=== PATIENT | female | born 1945 | race Two or more races ===

== ENCOUNTER 2017-08-22 18:31 | Emergency (ER) | payer MEDICARE, OTHER ==
[~2017-08-22] VITALS: Ht 154.9 cm; Wt 68.0 kg
--- NOTE | 2017-08-22 18:35 | NUR ---
PRESENTS TO ER C/O LEFT WRIST/ARM PAIN AND RT KNEE PAIN S/P SLIP AND FALL. PATIENT IS A/OX 4. BREATHING EVEN AND UNLABORED. NO SOB, NAD, VITALS STABLE. SAFETY AND COMFORT MEASURES IN PLACE. AWAITING MD ORDERS.
--- NOTE | 2017-08-22 18:52 | NUR ---
AT BEDSIDE FOR EVAL.
--- NOTE | 2017-08-22 19:10 | NUR ---
FIELD MARKETING LEAD AT BEDSIDE.
[2017-08-22] MEDS ORDERED: TRAMADOL HCL 50 MG TABLET ONE (20:47)
[2017-08-22] MEDS ORDERED: TRAMADOL HCL 50 MG TABLET PO ONE (21:00)
[2017-08-22 21:02] VITALS: BP 124/88
== END 2017-08-22 21:02 | disposition home or self-care (01) ==
LOC: ER 18:34
DX: S52.502A Unspecified fracture of the lower end of left radius, initial encounter for closed fracture (principal); S52.602A Unspecified fracture of lower end of left ulna, initial encounter for closed fracture; F32.9 Major depressive disorder, single episode, unspecified; M25.561 Pain in right knee; I10 Essential (primary) hypertension; Z90.10 Acquired absence of unspecified breast and nipple; Z86.73 Personal history of transient ischemic attack (TIA), and cerebral infarction without residual deficits; W01.0XXA Fall on same level from slipping, tripping and stumbling without subsequent striking against object, initial encounter; Y93.89 Activity, other specified; Y92.89 Other specified places as the place of occurrence of the external cause; Y99.8 Other external cause status
CPT/HCPCS: 29125; 73110; 73564; 99284; A4606; Z7610

== ENCOUNTER 2019-05-15 15:14 | Emergency (ER) | payer MEDICARE, OTHER ==
[~2019-05-15] VITALS: Ht 154.9 cm; Wt 68.0 kg
--- NOTE | 2019-05-15 15:36 | NUR ---
PT CAME INTO THE ED C/O LOWER BACK PAIN R/T LLE. PAIN HAS GOTTEN WORST FOR THE PAST 2 DAYS. PT AAOX4, VSS, BREATHING EVEN AND UNLABORED ON ROOM AIR W/ NAD NOTED. AWAITING FOR MD DURAN.
[2019-05-15] MEDS ORDERED: KETOROLAC TROMETHAMINE INJ 30 MG/ML VIAL ONE (15:49)
[2019-05-15] MEDS ORDERED: KETOROLAC TROMETHAMINE INJ 60 MG/2 ML VIAL IM ONE (16:00)
--- NOTE | 2019-05-15 16:53 | NUR ---
ULTRAOSUND IN PROGRESS AT BEDSIDE
[2019-05-15 17:06] VITALS: BP 117/86
--- NOTE | 2019-05-15 17:06 | NUR ---
Patient discharged to home in stable condition. Written and verbal after care instructions given. Patient verbalizes understanding of instruction.
== END 2019-05-15 17:08 | disposition home or self-care (01) ==
LOC: ER 15:15
DX: M54.42 Lumbago with sciatica, left side (principal); I10 Essential (primary) hypertension; F32.9 Major depressive disorder, single episode, unspecified; Z98.890 Other specified postprocedural states; Z85.3 Personal history of malignant neoplasm of breast
CPT/HCPCS: 93971; 96372; 99284; J1885

== ENCOUNTER 2023-01-15 17:18 | Emergency (ER) | payer MEDICARE, OTHER ==
[~2023-01-15] VITALS: Ht 162.6 cm; Wt 68.0 kg
[2023-01-15 18:54] LABS: EOSINOPHILS # (AUTO) 0.1 K/uL (0.0-0.7); EOSINOPHILS % (AUTO) 0.5 % (0.0-6.0); HEMATOCRIT 27 % (33-45); HEMOGLOBIN 8.8 g/dL (11.5-14.8); LYMPHOCYTES # (AUTO) 0.7 K/uL (0.8-4.8); LYMPHOCYTES % (AUTO) 5.9 % (20.0-44.0); MEAN CORPUSCULAR HEMOGLOBIN 27 PG (26.0-33.0); MEAN CORPUSCULAR HGB CONC 32 g/dl (31.0-36.0); MEAN CORPUSCULAR VOLUME 85 fL (82-100); MONOCYTES # (AUTO) 1.3 K/uL (0.1-1.30); MONOCYTES % (AUTO) 10.2 % (2.0-12.0); NEUTROPHILS # (AUTO) 10.3 K/uL (1.8-8.9); NEUTROPHILS % (AUTO) 83.4 % (43.0-81.0); PLATELET COUNT (AUTO) 624 K/uL (150-450); RED BLOOD CELL COUNT(AUTO) 3.21 MIL/uL (4.0-5.2); RED CELL DISTRIBUTION WIDTH 19.4 % (11.5-15.0); WHITE BLOOD COUNT (AUTO) 12.3 K/uL (4.3-11.0)
[2023-01-15] MEDS ORDERED: IV NS 0.9% 1,000 ML IV ONE (19:00)
[2023-01-15 19:04] LABS: CALCIUM, SERUM 8.1 mg/dL (8.5-10.1); CARBON DIOXIDE 30 mmol/L (21-32); CHLORIDE 96 mmol/L (98-107); CREATININE 0.5 mg/dL (0.6-1.3); GLUCOSE 117 mg/dL (74-106); SODIUM SERUM 134 mmol/L (136-145); UREA NITROGEN, BLOOD 10 mg/dL (7-18)
[2023-01-15 19:10] LABS: ALANINE AMINOTRANSFERASE 16 U/L (12-78); ALBUMIN 1.7 g/dL (3.4-5.0); ALKALINE PHOSPHATASE 167 U/L (46-116); ASPARTATE AMINOTRANSFERASE 12 U/L (15-37); BILIRUBIN,DIRECT 0.2 mg/dL (0.0-0.2); BILIRUBIN,TOTAL 0.5 mg/dL (0.2-1.0); LIPASE < 10 U/L (73-393); POTASSIUM 2.8 mmol/L (3.5-5.1); TOTAL PROTEIN, SERUM 5.4 g/dL (6.4-8.2)
[2023-01-15] MEDS ORDERED: POTASSIUM CHLORIDE 20 MEQ TAB.PRT.SR PO ONE ×2 (19:23→19:30)
[2023-01-15] MEDS ORDERED: IOHEXOL-350 100 ML VIAL IV ONE (19:44)
[2023-01-15] MEDS ORDERED: IV NS 0.9% 250 ML IV ONE (19:44)
[2023-01-15 20:15] LABS: APPEARANCE,URINE SLIGHTLY CLOUDY (CLEAR); BILIRUBIN,URINE 2+ (NEGATIVE); BLOOD, URINE TRACE-INTA Ery/uL (NEGATIVE); COLOR,URINE YELLOW (YELLOW); KETONES,URINE 3+ mg/dL (NEGATIVE); LEUKOCYTE ESTERASE ,URINE TRACE (NEGATIVE); NITRITE, URINE NEGATIVE (NEGATIVE); PROTEIN,URINE 1+ mg/dl (NEGATIVE); UGLUCOSE NEGATIVE (NEGATIVE)
[2023-01-15 20:22] LABS: ADD URINE CULTURE NO; BACTERIA,URINE 1+ /HPF (None Seen)
[2023-01-15 20:23] LABS: MUCUS,URINE Many /LPF (None Seen)
[2023-01-16 07:47] LABS: ALANINE AMINOTRANSFERASE 17 U/L (12-78); ALBUMIN 1.8 g/dL (3.4-5.0); ALKALINE PHOSPHATASE 178 U/L (46-116); ASPARTATE AMINOTRANSFERASE 20 U/L (15-37); BILIRUBIN,TOTAL 0.5 mg/dL (0.2-1.0); CALCIUM, SERUM 8.3 mg/dL (8.5-10.1); CARBON DIOXIDE 22 mmol/L (21-32); CHLORIDE 98 mmol/L (98-107); CREATININE 0.4 mg/dL (0.6-1.3); GLUCOSE 112 mg/dL (74-106); POTASSIUM 3.2 mmol/L (3.5-5.1); SODIUM SERUM 135 mmol/L (136-145); TOTAL PROTEIN, SERUM 6.1 g/dL (6.4-8.2); UREA NITROGEN, BLOOD 6 mg/dL (7-18)
[2023-01-16 08:15] LABS: BASOPHILS % (AUTO) 0.2 % (0.0-2.0); EOSINOPHILS % (AUTO) 0.4 % (0.0-6.0); HEMATOCRIT 32 % (33-45); HEMOGLOBIN 10.2 g/dL (11.5-14.8); LYMPHOCYTES # (AUTO) 1.1 K/uL (0.8-4.8); LYMPHOCYTES % (AUTO) 9.1 % (20.0-44.0); MEAN CORPUSCULAR HEMOGLOBIN 27 PG (26.0-33.0); MEAN CORPUSCULAR HGB CONC 32 g/dl (31.0-36.0); MEAN CORPUSCULAR VOLUME 85 fL (82-100); MONOCYTES # (AUTO) 1.4 K/uL (0.1-1.30); MONOCYTES % (AUTO) 12.2 % (2.0-12.0); NEUTROPHILS # (AUTO) 9.3 K/uL (1.8-8.9); NEUTROPHILS % (AUTO) 78.1 % (43.0-81.0); PLATELET COUNT (AUTO) 697 K/uL (150-450); RED BLOOD CELL COUNT(AUTO) 3.73 MIL/uL (4.0-5.2); RED CELL DISTRIBUTION WIDTH 19.5 % (11.5-15.0); WHITE BLOOD COUNT (AUTO) 11.9 K/uL (4.3-11.0)
[2023-01-16] MEDS ORDERED: AMOX50SU15 PO (08:45)
[2023-01-16 08:51] VITALS: BP 122/84; TEMP 98.4; O2SAT 98
== END 2023-01-16 08:51 | disposition home or self-care (01) ==
LOC: ER 17:53
DX: E87.6 Hypokalemia (principal); K91.89 Other postprocedural complications and disorders of digestive system; R10.33 Periumbilical pain; I10 Essential (primary) hypertension; F32.A Depression, unspecified; Z20.822 Contact with and (suspected) exposure to COVID-19; Z98.890 Other specified postprocedural states; Y83.9 Surgical procedure, unspecified as the cause of abnormal reaction of the patient, or of later complication, without mention of misadventure at the time of the procedure
CPT/HCPCS: 99285; 74177; 96360; 87426; 85025 ×2; 80048; 83690; 80076; 81001; 36415 ×2; 86850; 80053; J7030; J7050; Q9967; C9803

== ENCOUNTER 2023-01-19 13:53 | Inpatient (IN) | payer MEDICARE, OTHER ==
[~2023-01-19] VITALS: Ht 157.5 cm; Wt 57.6 kg
[~2023-01-19 13:53] MED LIST: AMOX50SU15 PO; ZOSYN IVPB 3.375 G in IV D5W 50ml IV SCH
[2023-01-19] MEDS ORDERED: IV NS 0.9% 1,000 ML BAG IV ONE (14:30)
[2023-01-19 14:40] LABS: BASOPHILS % (AUTO) 0.3 % (0.0-2.0); EOSINOPHILS # (AUTO) 0.2 K/uL (0.0-0.7); EOSINOPHILS % (AUTO) 1.4 % (0.0-6.0); HEMATOCRIT 29 % (33-45); HEMOGLOBIN 9.4 g/dL (11.5-14.8); LYMPHOCYTES # (AUTO) 0.8 K/uL (0.8-4.8); LYMPHOCYTES % (AUTO) 7.1 % (20.0-44.0); MEAN CORPUSCULAR HEMOGLOBIN 28 PG (26.0-33.0); MEAN CORPUSCULAR HGB CONC 33 g/dl (31.0-36.0); MEAN CORPUSCULAR VOLUME 84 fL (82-100); MONOCYTES # (AUTO) 0.8 K/uL (0.1-1.30); NEUTROPHILS # (AUTO) 9.6 K/uL (1.8-8.9); NEUTROPHILS % (AUTO) 84.2 % (43.0-81.0); PLATELET COUNT (AUTO) 770 K/uL (150-450); RED BLOOD CELL COUNT(AUTO) 3.42 MIL/uL (4.0-5.2); RED CELL DISTRIBUTION WIDTH 19.5 % (11.5-15.0); WHITE BLOOD COUNT (AUTO) 11.5 K/uL (4.3-11.0)
[2023-01-19 14:53] LABS: ALANINE AMINOTRANSFERASE 19 U/L (12-78); ALBUMIN 1.7 g/dL (3.4-5.0); ALKALINE PHOSPHATASE 136 U/L (46-116); ASPARTATE AMINOTRANSFERASE 23 U/L (15-37); BILIRUBIN,DIRECT 0.1 mg/dL (0.0-0.2); BILIRUBIN,TOTAL 0.3 mg/dL (0.2-1.0); CALCIUM, SERUM 8.1 mg/dL (8.5-10.1); CARBON DIOXIDE 27 mmol/L (21-32); CHLORIDE 100 mmol/L (98-107); CREATININE 0.9 mg/dL (0.6-1.3); GLUCOSE 155 mg/dL (74-106); SODIUM SERUM 138 mmol/L (136-145); TOTAL PROTEIN, SERUM 5.5 g/dL (6.4-8.2); UREA NITROGEN, BLOOD 11 mg/dL (7-18)
[2023-01-19 14:56] LABS: LACTIC ACID 1.6 mmol/L (0.4-2.0); POTASSIUM 2.8 mmol/L (3.5-5.1)
[2023-01-19 15:30] LABS: INR 1.28 (0.91-1.10); PARTIAL THROMBOPLASTIN TIME 22.5 SEC (24.3-34.3); PROTHROMBIN TIME 13.3 SECS (9.2-11.1)
[2023-01-19] MEDS ORDERED: LATA7.5D EACHEYE (15:42)
[2023-01-19] MEDS ORDERED: QUET25TA PO (15:42)
[2023-01-19] MEDS ORDERED: BLOO-668 IN (15:42)
[2023-01-19] MEDS ORDERED: LORA-259 PO (15:42)
[2023-01-19] MEDS ORDERED: OLOP2.5D6 EACHEYE (15:42)
[2023-01-19] MEDS ORDERED: AMYL1CAP58 PO (15:42)
[2023-01-19] MEDS ORDERED: VENL150T PO (15:42)
[2023-01-19] MEDS ORDERED: BACL10TA PO (15:42)
[2023-01-19] MEDS ORDERED: RAME8TAB24 PO (15:42)
[2023-01-19] MEDS ORDERED: BRIM5DRO2 EACHEYE (15:42)
[2023-01-19] MEDS ORDERED: OFLO5DRO6 EACHEYE (15:42)
[2023-01-19] MEDS ORDERED: AMOX-430 PO (15:42)
[2023-01-19] MEDS ORDERED: METO25TA6 PO (15:42)
[2023-01-19] MEDS ORDERED: ASPI-1169 PO (15:42)
[2023-01-19] MEDS ORDERED: BACI1OIN LEFTEYE (15:42)
[2023-01-19] MEDS ORDERED: NIAC-5 PO (15:42)
[2023-01-19] MEDS ORDERED: OMEP1CAP24 PO (15:42)
[2023-01-19] MEDS ORDERED: DONE10TA44 PO (15:42)
[2023-01-19] MEDS ORDERED: NITROGLYCERIN 0.4 MG/TAB BOTTLE SL PRN (16:00)
[2023-01-19] MEDS ORDERED: POTASSIUM CHLORIDE 20 MEQ TAB.PRT.SR PO ONE ×2 (16:00→16:09)
[2023-01-19] MEDS ORDERED: ASPIRIN 325 MG TABLET PO ONE (16:00)
[2023-01-19] MEDS ORDERED: LORAZEPAM 1 MG TABLET PO PRN (16:00)
[2023-01-19] MEDS ORDERED: POTASSIUM CL. PREMIX PERIPHER. 50 ML IV SCH (16:00)
[2023-01-19] MEDS ORDERED: ONDANSETRON HCL/PF 4 MG/2 ML VIAL IVP PRN (16:00)
[2023-01-19] MEDS ORDERED: MORPHINE SULFATE INJ 2 MG/ML DISP.SYRIN IV PRN (16:00)
[2023-01-19] MEDS ORDERED: POTASSIUM CL. PREMIX PERIPHER. 50 ML ONE ×2 (16:09→16:57)
[2023-01-19 16:26] VITALS: O2SAT 97
[2023-01-19] MEDS ORDERED: ASPIRIN 81 MG TAB.CHEW PO ONE (16:30)
[2023-01-19] MEDS ORDERED: PIPERACILLIN /TAZOBACTAM 3.375 G in IV D5W 50 ML IV ONE (16:30)
[2023-01-19] MEDS ORDERED: ASPIRIN 325 MG TABLET ONE (16:53)
[2023-01-19] MEDS ORDERED: ASPIRIN 81 MG TAB.CHEW ONE (16:56)
[2023-01-19] MEDS ORDERED: PIPERACILLIN /TAZOBACTAM 4.5 G in IV D5W 50 ML IV SCH (18:00)
[2023-01-19 18:08] LABS: ANISOCYTOSIS 1+; BAND % (MANUAL) 5 % (0.0-5.0); EOSINOPHILS % (MANUAL) 1 % (0-4); LYMPHOCYTES % (MANUAL) 12 % (16-48); MONOCYTES % (MANUAL) 4 % (0-11.0); NEUTROPHILS % (MANUAL) 78 (42-76); OVALOCYTES 1+; PLATELET ESTIMATE INCREASED
[2023-01-19 20:00] VITALS: BP 102/54; TEMP 98.3; O2SAT 97
[2023-01-19 20:25] VITALS: BP 112/69; TEMP 98.1
[2023-01-19 20:59] LABS: INR 1.25 (0.91-1.10)
[2023-01-19] MEDS ORDERED: HEPARIN INFUSION/D5W 500 ML IV PRN (21:00)
[2023-01-19] MEDS ORDERED: HEPARIN SODIUM, PORCINE 5000 UNITS/1 ML VIAL IV ONE (21:00)
[2023-01-19] MEDS: BACLOFEN (10 MG) 10 MG TABLET PO SCH (21:58)
[2023-01-19] MEDS: LATANOPROST EYE DROP 0.005% 2.5 ML BOTTLE EACHEYE SCH ×2 (21:59→23:38)
[2023-01-19] MEDS: QUETIAPINE FUMARATE 25 MG TABLET PO SCH (21:59)
[2023-01-19] MEDS: DONEPEZIL 5 MG TABLET PO SCH (21:59)
[2023-01-19] MEDS ORDERED: RAMELTEON 8 MG PO SCH (22:00)
[2023-01-19] MEDS: OLOPATADINE HCL 0.1% OPHTH BOTTLE EACHEYE SCH (23:41)
[2023-01-20] MEDS: CALCIUM CARBONATE 500 MG TAB.CHEW PO PRN ×2 (00:11→23:25)
[2023-01-20] MEDS: ZOSYN IVPB 3.375 G in IV D5W 50ml IV SCH ×5 (01:26→23:58)
[2023-01-20] MEDS: LATANOPROST EYE DROP 0.005% 2.5 ML BOTTLE EACHEYE SCH ×2 (02:12→21:19)
[2023-01-20] MEDS: BLOOD SUGAR DIAGNOSTIC 1 EACH STRIP IN SCH (06:40)
[2023-01-20 06:45] LABS: BASOPHILS % (AUTO) 0.3 % (0.0-2.0); EOSINOPHILS # (AUTO) 0.3 K/uL (0.0-0.7); EOSINOPHILS % (AUTO) 3.8 % (0.0-6.0); HEMATOCRIT 27 % (33-45); HEMOGLOBIN 8.6 g/dL (11.5-14.8); LYMPHOCYTES # (AUTO) 1.3 K/uL (0.8-4.8); LYMPHOCYTES % (AUTO) 15.7 % (20.0-44.0); MEAN CORPUSCULAR HEMOGLOBIN 27 PG (26.0-33.0); MEAN CORPUSCULAR HGB CONC 32 g/dl (31.0-36.0); MEAN CORPUSCULAR VOLUME 85 fL (82-100); MONOCYTES # (AUTO) 0.8 K/uL (0.1-1.30); MONOCYTES % (AUTO) 9.9 % (2.0-12.0); NEUTROPHILS # (AUTO) 5.6 K/uL (1.8-8.9); NEUTROPHILS % (AUTO) 70.3 % (43.0-81.0); PLATELET COUNT (AUTO) 643 K/uL (150-450); RED BLOOD CELL COUNT(AUTO) 3.17 MIL/uL (4.0-5.2); RED CELL DISTRIBUTION WIDTH 19.6 % (11.5-15.0)
[2023-01-20 07:14] LABS: INR 1.22 (0.91-1.10); PARTIAL THROMBOPLASTIN TIME 37.5 SEC (24.3-34.3); PROTHROMBIN TIME 12.7 SECS (9.2-11.1)
[2023-01-20 07:30] LABS: CALCIUM, SERUM 7.9 mg/dL (8.5-10.1); CARBON DIOXIDE 26 mmol/L (21-32); CHLORIDE 103 mmol/L (98-107); CREATININE 0.5 mg/dL (0.6-1.3); GLUCOSE 105 mg/dL (74-106); MAGNESIUM 1.5 mg/dL (1.8-2.4); PHOSPHORUS 2.7 mg/dL (2.5-4.9); SODIUM SERUM 137 mmol/L (136-145); UREA NITROGEN, BLOOD 8 mg/dL (7-18)
[2023-01-20 08:00] VITALS: BP 121/72; TEMP 98.3; O2SAT 99
[2023-01-20 08:38] LABS: POTASSIUM 2.7 mmol/L (3.5-5.1)
[2023-01-20] MEDS: OFLOXACIN 0.3% OPHTH 5 ML BOTTLE EACHEYE SCH ×3 (09:00→17:54)
[2023-01-20] MEDS ORDERED: POTASSIUM CHLORIDE 20 MEQ TAB.PRT.SR PO ONE (10:00)
[2023-01-20] MEDS: Magnesium 1GM/D5W 100ML PREMIX 100 ML IV SCH ×4 (10:36→20:34)
[2023-01-20] MEDS: PANTOPRAZOLE 40 MG TABLET.DR PO SCH (10:45)
[2023-01-20] MEDS: ASPIRIN 81 MG TAB.CHEW PO SCH (10:46)
[2023-01-20] MEDS: VENLAFAXINE XR 150 MG CAP.SR.24H PO SCH (10:47)
[2023-01-20] MEDS: LIPASE/PROTEASE/AMYLASE 1 EACH CAPSULE.DR PO SCH ×4 (12:50→18:09)
[2023-01-20] MEDS: METOPROLOL TARTRATE 25 MG TABLET PO SCH ×3 (12:52→17:57)
[2023-01-20 16:00] VITALS: BP 128/80; TEMP 98.5; O2SAT 96
[2023-01-20] MEDS: IV NS 0.9% 1,000 ML IV PRN (19:36)
[2023-01-20 20:00] VITALS: BP 107/73; TEMP 98.7; O2SAT 97
[2023-01-20] MEDS: OLOPATADINE HCL 0.1% OPHTH BOTTLE EACHEYE SCH (21:13)
[2023-01-20] MEDS: DONEPEZIL 5 MG TABLET PO SCH (21:16)
[2023-01-20] MEDS: QUETIAPINE FUMARATE 25 MG TABLET PO SCH (21:17)
[2023-01-20] MEDS: BACLOFEN (10 MG) 10 MG TABLET PO SCH (21:17)
[2023-01-20] MEDS ORDERED: ATORVASTATIN 10 MG TABLET PO SCH (22:00)
[2023-01-21] VITALS: BP 103/59; TEMP 98; O2SAT 96
[2023-01-21 04:00] VITALS: BP_SYST 130; TEMP 98; O2SAT 98
[2023-01-21] MEDS: ZOSYN IVPB 3.375 G in IV D5W 50ml IV SCH (06:43)
[2023-01-21 07:00] VITALS: BP 137/75; TEMP 97.6; O2SAT 97
[2023-01-21] MEDS: BLOOD SUGAR DIAGNOSTIC 1 EACH STRIP IN SCH (07:30)
[2023-01-21] MEDS: PANTOPRAZOLE 40 MG TABLET.DR PO SCH (07:56)
[2023-01-21] MEDS: LIPASE/PROTEASE/AMYLASE 1 EACH CAPSULE.DR PO SCH ×3 (08:04→17:08)
[2023-01-21] MEDS: VENLAFAXINE XR 150 MG CAP.SR.24H PO SCH (08:28)
[2023-01-21] MEDS: ASPIRIN 81 MG TAB.CHEW PO SCH (08:28)
[2023-01-21 08:54] LABS: BASOPHILS % (AUTO) 0.5 % (0.0-2.0); EOSINOPHILS # (AUTO) 0.3 K/uL (0.0-0.7); EOSINOPHILS % (AUTO) 3.2 % (0.0-6.0); HEMATOCRIT 33 % (33-45); HEMOGLOBIN 10.6 g/dL (11.5-14.8); LYMPHOCYTES # (AUTO) 1.5 K/uL (0.8-4.8); LYMPHOCYTES % (AUTO) 15.4 % (20.0-44.0); MEAN CORPUSCULAR HEMOGLOBIN 27 PG (26.0-33.0); MEAN CORPUSCULAR HGB CONC 32 g/dl (31.0-36.0); MEAN CORPUSCULAR VOLUME 84 fL (82-100); MONOCYTES # (AUTO) 0.7 K/uL (0.1-1.30); MONOCYTES % (AUTO) 7.1 % (2.0-12.0); NEUTROPHILS # (AUTO) 7.4 K/uL (1.8-8.9); NEUTROPHILS % (AUTO) 73.8 % (43.0-81.0); PLATELET COUNT (AUTO) 885 K/uL (150-450); RED BLOOD CELL COUNT(AUTO) 3.91 MIL/uL (4.0-5.2); RED CELL DISTRIBUTION WIDTH 19.4 % (11.5-15.0)
[2023-01-21 09:18] LABS: CALCIUM, SERUM 8.3 mg/dL (8.5-10.1); CREATININE 0.6 mg/dL (0.6-1.3); POTASSIUM 3.7 mmol/L (3.5-5.1)
[2023-01-21] MEDS: METOPROLOL TARTRATE 25 MG TABLET PO SCH ×2 (09:52→17:08)
[2023-01-21] MEDS: OFLOXACIN 0.3% OPHTH 5 ML BOTTLE EACHEYE SCH ×3 (09:52→17:08)
[2023-01-21 12:00] VITALS: BP 123/69; TEMP 98; O2SAT 94
[2023-01-21] MEDS ORDERED: PIPERACILLIN /TAZOBACTAM 3.375 G in IV D5W 100 ML IV SCH (13:00)
[2023-01-21 16:00] VITALS: BP 126/89; TEMP 97.6; O2SAT 98
[2023-01-21] MEDS ORDERED: LOPERAMIDE HCL (2 MG CAP) 2 MG CAPSULE PO ONE (16:30)
[2023-01-21 17:08] VITALS: BP 120/85
[2023-01-21] MEDS: IV NS 0.9% 1,000 ML IV PRN (18:00)
== END 2023-01-21 20:40 | disposition short-term general hospital (02) | DRG 602 ==
LOC: ER 13:56 → TELE 16:39
PROVIDERS: ADMIT Internal Medicine; ATTEND Internal Medicine
DX: L02.211 Cutaneous abscess of abdominal wall (principal); I21.4 Non-ST elevation (NSTEMI) myocardial infarction; E86.1 Hypovolemia; Z20.822 Contact with and (suspected) exposure to COVID-19; Z86.73 Personal history of transient ischemic attack (TIA), and cerebral infarction without residual deficits; Z85.07 Personal history of malignant neoplasm of pancreas; Z85.3 Personal history of malignant neoplasm of breast; I10 Essential (primary) hypertension; F32.A Depression, unspecified; Z90.10 Acquired absence of unspecified breast and nipple; Z79.899 Other long term (current) drug therapy; Z79.82 Long term (current) use of aspirin; D63.8 Anemia in other chronic diseases classified elsewhere; E87.6 Hypokalemia; I25.10 Atherosclerotic heart disease of native coronary artery without angina pectoris
CPT/HCPCS: 36415; 71045-TC; 80048-TC; 80076-TC; 82962-TC; 83605-TC; 83735-TC; 84100-TC; 84484-TC; 85025-TC; 85610-TC; 85730-TC; 87040-TC; 93307-TC; A4223; A6403; G0378; J1644; J2543; J3475; J3480; J7030; J7060

== ENCOUNTER 2023-06-15 12:59 | Emergency (ER) | payer MEDICARE, OTHER ==
[~2023-06-15] VITALS: Ht 162.6 cm; Wt 49.9 kg
[~2023-06-15 12:59] MED LIST changes: +AMOX-430 PO; -AMOX50SU15 PO; +AMYL1CAP58 PO; +ASPI-1169 PO; +BACI1OIN LEFTEYE; +BACL10TA PO; +BLOO-668 IN; +BRIM5DRO2 EACHEYE; +DONE10TA44 PO; +LATA7.5D EACHEYE; +LORA-259 PO; +METO25TA6 PO; +NIAC-5 PO; +OFLO5DRO6 EACHEYE; +OLOP2.5D6 EACHEYE; +OMEP1CAP24 PO; +QUET25TA PO; +RAME8TAB24 PO; +VENL150T PO; -ZOSYN IVPB 3.375 G in IV D5W 50ml IV SCH
[2023-06-15] MEDS ORDERED: IV NS 0.9% 1,000 ML BAG IV ONE (13:30)
[2023-06-15 13:41] LABS: BASOPHILS % (AUTO) 0.2 % (0.0-2.0); EOSINOPHILS # (AUTO) 0.3 K/uL (0.0-0.7); EOSINOPHILS % (AUTO) 3.8 % (0.0-6.0); HEMATOCRIT 26 % (33-45); HEMOGLOBIN 8.9 g/dL (11.5-14.8); LYMPHOCYTES # (AUTO) 1.7 K/uL (0.8-4.8); LYMPHOCYTES % (AUTO) 25.8 % (20.0-44.0); MEAN CORPUSCULAR HEMOGLOBIN 32 PG (26.0-33.0); MEAN CORPUSCULAR HGB CONC 34 g/dl (31.0-36.0); MEAN CORPUSCULAR VOLUME 95 fL (82-100); MONOCYTES # (AUTO) 0.8 K/uL (0.1-1.30); MONOCYTES % (AUTO) 12.2 % (2.0-12.0); NEUTROPHILS # (AUTO) 3.8 K/uL (1.8-8.9); PLATELET COUNT (AUTO) 330 K/uL (150-450); RED BLOOD CELL COUNT(AUTO) 2.76 MIL/uL (4.0-5.2); RED CELL DISTRIBUTION WIDTH 29.8 % (11.5-15.0); WHITE BLOOD COUNT (AUTO) 6.6 K/uL (4.3-11.0)
[2023-06-15 14:45] LABS: CALCIUM, SERUM 8.2 mg/dL (8.5-10.1); CARBON DIOXIDE 26 mmol/L (21-32); CHLORIDE 97 mmol/L (98-107); CREATININE 0.7 mg/dL (0.6-1.3); GLUCOSE 142 mg/dL (74-106); POTASSIUM 3.3 mmol/L (3.5-5.1); SODIUM SERUM 130 mmol/L (136-145); UREA NITROGEN, BLOOD 15 mg/dL (7-18)
[2023-06-15] MEDS ORDERED: METR500T PO (14:48)
[2023-06-15] MEDS ORDERED: CIPR-262 PO (14:48)
[2023-06-15 15:02] LABS: ALANINE AMINOTRANSFERASE 40 U/L (12-78); ALBUMIN 2.8 g/dL (3.4-5.0); ALKALINE PHOSPHATASE 158 U/L (46-116); ASPARTATE AMINOTRANSFERASE 35 U/L (15-37); BILIRUBIN,DIRECT 0.1 mg/dL (0.0-0.2); BILIRUBIN,TOTAL 0.2 mg/dL (0.2-1.0); LIPASE 7 U/L (16-77); TOTAL PROTEIN, SERUM 5.8 g/dL (6.4-8.2)
[2023-06-15 15:11] LABS: APPEARANCE,URINE CLEAR (CLEAR); BILIRUBIN,URINE NEGATIVE (NEGATIVE); BLOOD, URINE NEGATIVE Ery/uL (NEGATIVE); COLOR,URINE YELLOW (YELLOW); KETONES,URINE NEGATIVE (NEGATIVE); LEUKOCYTE ESTERASE ,URINE NEGATIVE (NEGATIVE); NITRITE, URINE NEGATIVE (NEGATIVE); PROTEIN,URINE NEGATIVE (NEGATIVE); UGLUCOSE NEGATIVE (NEGATIVE); UROBILINOGEN,URINE 0.2 EU/dL (0.2)
[2023-06-15 15:41] VITALS: BP 127/75; TEMP 97.6; O2SAT 94
== END 2023-06-15 15:42 | disposition home or self-care (01) ==
LOC: ER 13:17
DX: D64.9 Anemia, unspecified (principal); R19.7 Diarrhea, unspecified; R53.83 Other fatigue; E86.0 Dehydration; E87.6 Hypokalemia; I10 Essential (primary) hypertension; Z79.899 Other long term (current) drug therapy
CPT/HCPCS: 99285; 96360; 85025; 80048; 83690; 80076; 81003; 36415; J7030 ×2